=== PATIENT | male | born 1965 | race Caucasian/White ===

== ENCOUNTER → 2019-08-13 | Outpatient (CLI) | payer SELFPAY ==
[~2019-08-13] MED LIST: DOCU-109 PO; METH-38 PO; OXYC1TAB15 PO
[2019-08-13 13:03] LABS: BASO # 0.1 x10^3/uL (0.0-0.2); BASO % 1 % (0-3); EOS # 0.2 x10^3/uL (0.0-0.7); EOS % 2 % (0-3); HEMATOCRIT 42.1 % (39.0-53.0); HEMOGLOBIN 14.7 g/dL (13.0-17.5); LYMPH # 2.2 x10^3/uL (1.0-4.8); LYMPH % 33 % (24-48); MEAN CORPUSCULAR HEMOGLOBIN 34 pg (25-35); MEAN CORPUSCULAR HGB CONC 35 g/dL (31-37); MEAN CORPUSCULAR VOLUME 96 fL (79-100); MONO # 0.6 x10^3/uL (0.0-1.1); MONO % 9 % (0-9); NEUT # 3.6 x10^3/uL (1.8-7.7); NEUT % 54 % (31-73); PLATELET COUNT 242 x10^3/uL (140-400); RED BLOOD COUNT 4.39 x10^6/uL (4.30-5.70); RED CELL DISTRIBUTION WIDTH 12.6 % (11.5-14.5); WHITE BLOOD COUNT 6.7 x10^3/uL (4.0-11.0)
[2019-08-13 13:20] LABS: ALBUMIN 4.2 g/dL (3.4-5.0); ALBUMIN/GLOBULIN RATIO 1.4 (1.0-1.7); CALCIUM 9.4 mg/dL (8.5-10.1); CREATININE 0.8 mg/dL (0.7-1.3); POTASSIUM 4.2 mmol/L (3.5-5.1); TOTAL BILIRUBIN 0.3 mg/dL (0.2-1.0); TOTAL PROTEIN 7.3 g/dL (6.4-8.2)
== END | disposition home or self-care (01) ==
LOC: SURGPAT 12:05
PROVIDERS: ATTEND Neurological Surgery
DX: Z01.818 Encounter for other preprocedural examination (principal); M51.26 Other intervertebral disc displacement, lumbar region
CPT/HCPCS: 36415; 80053; 85025; 87641

== ENCOUNTER 2019-08-20 07:12 | Day surgery (SDC) | payer SELFPAY ==
[~2019-08-20] VITALS: Ht 177.8 cm; Wt 92.9 kg
--- NOTE | 2019-08-20 06:48 | PREOP HP ---
DATE OF SERVICE: 08/20/2019 ANTICIPATED DATE OF SURGERY: 08/20/2019 HISTORY OF PRESENT ILLNESS: The patient is a pleasant 54-year-old who beginning 4 months ago developed spontaneously lower back pain and right greater than left buttock pain. He notes pain which can radiate into the anterior leg on the right side. Standing and walking increases pain. Leaning forward helps him. He has been taking Percocet for pain. In June, he had epidural steroid injections without benefit. He has been doing physical therapy exercises at home without benefit. PAST MEDICAL HISTORY: Diverticulitis. PAST SURGICAL HISTORY: Tendon repair of the hand in 2003, broken wrist repair, and bone spur removal. FAMILY HISTORY: He is adopted. SOCIAL HISTORY: Employed as an surgical assistant in retail. Single. Smokes 1 pack per day and has for 27 years. Does not drink alcohol. ALLERGIES: No known drug allergies. CURRENT MEDICATIONS: Percocet, tizanidine, meloxicam, and gabapentin. REVIEW OF SYSTEMS: A 12-point review of systems was obtained and is noncontributory except for that mentioned above. PHYSICAL EXAMINATION: NEUROSURGERY EXAMINATION: GENERAL APPEARANCE: Alert, pleasant, and in no acute distress. HEAD: Normocephalic and atraumatic. SKIN: Warm and dry. MUSCULOSKELETAL: Lumbar paraspinal muscle bulk is normal, restricted range of motion of lumbar spine, [id number]-[id number] tenderness of the lower lumbar spine palpation, and normal range of motion of the lower extremities bilaterally. EXTREMITIES: No clubbing, cyanosis, or edema. NEUROLOGIC: Alert and oriented x 3, normal recent and remote memory, strength 5/5 in bilateral lower extremities, sensory was intact to light touch in bilateral lower extremities except for decrease in the right anterior thigh, reflexes were trace and symmetric in lower extremities bilaterally, negative straight leg raising bilaterally, and antalgic gait favoring his right leg. IMAGING: Reviewed. I reviewed a lumbar MRI scan. On that study, there was a lateral recess stenosis which is significant at L3-4 and L4-5 at both of these levels. There is a severe right lateral recess and foraminal narrowing. ASSESSMENT: Intervertebral disk disorders with radiculopathy, lumbar region. PLAN: The patient has a trefoil-shaped canal and lateral recess narrowing at L3-4 and L4-5. His symptoms are predominantly on the right side. My recommendation is that we perform a right direct microdecompression and microdiskectomies at L3-4 and L4-5. I spoke about the surgery and the risks. I outlined the technique of the operation in detail. We discussed the expected postoperative course. He understands. He would like to go ahead. We will make the arrangements. DEB FLOYD MD DR: CHECO/janett JOB#: [id number] / [id number]
[~2019-08-20 07:12] MED LIST changes: +BACITRACIN 50,000 UNIT in IV NORMAL SALINE 1000ML BAG 1,000 ML IRR ONE; +BUPIVACAINE-EPI 0.5%-1:200000 MPF 30 ML VIAL. INJ ONE; +DEXAMETHASONE SOD PHOS 20 MG/5 ML VIAL. ONE; -DOCU-109 PO; +GELATIN SPONGE SIZE 100. ONE; +HYDROmorphone 2 MG/ML VIAL IV PRN; +IV RINGERS,LACTATED 1000ML 1,000 ML IV SCH; +LIDOCAINE 1% PF 2 ML VIAL. ID PRN; +LIDOCAINE 2% PF 5 ML VIAL. ONE; -METH-38 PO; +MIDAZOLAM HCL/PF 2 MG/2 ML VIAL. ONE; +MORPHINE SULFATE 2 MG/ML VIAL. IV PRN; +ONDANSETRON PF 4 MG/2 ML VIAL. IV PRN; +ONDANSETRON PF 4 MG/2 ML VIAL. ONE; +PHENYLEPHRINE 10 MG/ML VIAL. ONE; +PROCHLORPERAZINE 10 MG/2 ML VIAL. IV PRN; +PROPOFOL 20 ML IV ONE; +PROPOFOL 50 ML IV ONE; +REMIFENTANIL 2 MG VIAL. IV ONE; +ROCURONIUM 50 MG/5 ML VIAL. ONE; +THROMBIN TOPICAL 20,000 UNIT SPRAY.SYRN KIT TP ONE; +ceFAZolin 2GM PREMIX 2 GM/50 ML BAG IV ONE; +fentaNYL PF VIAL 100 MCG/2 ML VIAL IV PRN
[2019-08-20] MEDS ORDERED: fentaNYL PF VIAL 100 MCG/2 ML VIAL ONE ×3 (07:13→13:06)
[2019-08-20] MEDS ORDERED: MINERAL OIL/PETROLATUM,WHITE OPHTH OINT 3.5GM TUBE. ONE (07:22)
[2019-08-20] MEDS ORDERED: DESFLURANE > 120 MINUTES IH ONE (07:24)
[2019-08-20] MEDS: fentaNYL PF VIAL 100 MCG/2 ML VIAL IV PRN ×3 (07:59→13:23)
[2019-08-20] MEDS ORDERED: PROPOFOL 50 ML IV ONE (11:08)
[2019-08-20] MEDS ORDERED: NEOSTIGMINE METHYLSULFATE 5 MG/5 ML SYRINGE. ONE (12:33)
--- NOTE | 2019-08-20 13:26 | OP ---
DATE OF SURGERY: 08/20/2019 PREOPERATIVE DIAGNOSES: 1. Herniated nucleus pulposus, right paracentral L4-L5. 2. Herniated nucleus pulposus, right paracentral plus foraminal L3-L4. OPERATION PERFORMED: 1. Hemilaminotomy and microdiscectomy, L4-L5 with decompression of dura and nerve root. 2. Hemilaminotomy, L3-L4 with transfacet exposure, L3-L4 and decompression of the right L3 and L4 nerve roots. The operation was done with fluoroscopy, microscopic dissection. SURGEON: Milad Floyd M.D. ANTENNA INSTALLER: SAL Fontaine, assisted with the surgery. She assisted with the 2-level microdiscectomy as well as closure. OPERATIVE INDICATIONS: The patient is a pleasant 54-year-old man who developed severe intractable back and right leg pain, which is incapacitating. He had above-mentioned findings on imaging studies. He failed to improved with epidural steroid injections. I recommended lumbar microsurgery. I spoke with him about the surgery, the risks, the technique and expected postoperative course and he wished to go ahead. DESCRIPTION OF PROCEDURE: Following general endotracheal anesthesia, the patient was positioned prone on the Rubin table. Lumbar region prepped and draped in standard fashion. BILL hose and AV impulse boots were applied for DVT prophylaxis. The microscope was draped. Fluoroscopy was draped and brought into the field. Ancef 2 grams were given less than 1 hour prior to initiation of surgery. Using fluoroscopic guidance, incision was made from upper L3 to inferior L5 dissected down through skin and subcutaneous tissue and now incision was made from mid L3 to mid L5. Dissection was carried down through skin and subcutaneous tissue and the paraspinal muscles were reflected. I exposed L4-L5, confirmed my position fluoroscopically, brought in the high-speed air drill and burred down a generous hemilaminotomy. I grasped and trimmed away thickened ligamentum flavum and peeled this away. There was considerable scarring around the nerve root and the dura and as I worked, I was able to get an excellent dorsal decompression. I did gently retract the root medially. There was a large bulging disc and I incised the annulus and I performed discectomy with pituitary rongeurs and as I worked, the region became very well decompressed. I explored carefully, I felt that I had an excellent decompression. There were no retained fragments. Hemostasis was excellent. I then moved to L3-L4 in a similar fashion, created a hemilaminotomy with a high-speed air drill and visualized the disc moving superiorly and then laterally and I drilled a transforaminal exposure visualizing the L3 root and followed this laterally and then worked beneath the root and peeled and removed disc material from a large bulging disc, which filled the foramen, to decompress the L4 root. There was a significant bulging disc that was more paracentral in location, lifting up the L4 root and I gently retracted the dura medially and entered into the disc space in this location and performed a discectomy and as I worked, the entire region became very well decompressed. Again, there was considerable scarring throughout this area, the disc was somewhat tenacious but as I worked, I felt that I had an excellent decompression. I irrigated copiously, obtained excellent hemostasis with bipolar cautery. I removed the retractor and gently let the muscle fall back together. There was diffuse bleeding points in the muscle, which I coagulated. Again, I irrigated and then closed the wound in layers with absorbable suture and the skin with a 4-0 subcuticular stitch. The operation went very well. I was quite pleased with the surgery. MILAD FLOYD MD DR: CHECO/janett JOB#: [id number] / [id number] ANGE
[2019-08-20] MEDS ORDERED: oxyCODONE/APAP 5/325 1 TAB TABLET PO ONE (13:45)
[2019-08-20 13:58] VITALS: BP 157/84
[2019-08-20] MEDS ORDERED: DOCU-109 PO (14:07)
[2019-08-20] MEDS ORDERED: METH-38 PO (14:07)
--- NOTE | 2019-08-20 14:08 | DISCH ---
DISCHARGE INSTRUCTIONS Condition on Discharge Condition on Discharge: Stable Activity After Discharge Activity Instructions for Disc: Activity as tolerated, Avoid exertion Other activity instructions: no driving for a week Bathing Instructions: Shower-keep dressing dry Lifting Instructions after Dis: No heavy lifting, No pulling or pushing, Do not lift >10 pounds Diet after Discharge Additional Diet Restrictions: resume home diet Wound Incision Care Wound/Incision Care: Ice to area for comfort Other wound/incision instructi: may remove dressing in 48 hour if dry then may shower, no soaking Contacting the after DC Call your doctor for: Concerns you may have Follow-Up Follow up with: Dr. Floyd's nurse in 2 weeks [phone] DEB FLOYD MD Aug 20, 2019 14:08
--- NOTE | 2019-08-23 17:06 | PATHOLOGY ---
[facility] Accession Number: [id number] . 01 Material submitted: . vertebral column - LUMBAR DISC AND DECOMPRESSION . 01 Clinical history: . Lumbar herniated disc . 02 Diagnosis: Segments of fibrocartilaginous, adipose, and skeletal muscle tissue and bone, lumbar disc and decompression: - Degenerative changes of fibrocartilaginous tissue. (JPM:ripper operator; 08/23/2019) MBR 08/23/2019 1400 Local . 02 Comment: There is no evidence of an acute inflammatory process or malignancy. (JPM:ripper operator; 08/23/2019) . 02 Electronically signed: . Javier Pendleton MD, Pathologist NPI- [id number] . 01 Gross description: . Received in formalin labeled "Neftaly Allen, lumbar disc and decompression," are several pieces of glistening, fibrous tissue measuring 5.1 x 3.1 x 2.9 cm in aggregate dimensions, containing small fragments of possible bone. The tissue is submitted representatively in cassette A1, following decalcification. (TSD; 08/20/2019) TOB/TOB 08/20/2019 2251 Local . 02 Pathologist provided ICD-10: M51.26 . 02 CPT . 811751, [id number] Specimen Comment: A courtesy copy of this report has been sent to Specimen Comment: [phone], . Specimen Comment: Report sent to / DR DUMONT Performed at: 01 [facility] [address], [place] [id number] MD Levy Nieto MD Phone: [phone] Performed at: 02 [facility] [address], [place] [id number] MD Javier Pendleton MD Phone: [phone]
== END 2019-08-20 15:06 | disposition home or self-care (01) ==
LOC: SURG 07:12
PROVIDERS: ATTEND Neurological Surgery
DX: M51.16 Intervertebral disc disorders with radiculopathy, lumbar region (principal); F17.210 Nicotine dependence, cigarettes, uncomplicated; K57.92 Diverticulitis of intestine, part unspecified, without perforation or abscess without bleeding; Z87.39 Personal history of other diseases of the musculoskeletal system and connective tissue; Z98.890 Other specified postprocedural states
CPT/HCPCS: 63030; 63035; 88304; 88311; 97161; A7015; J0696; J1100; J2001; J2250; J2405; J2704; J2710; J3010; J3490; J7030; 76000